=== PATIENT | female | born 1965 | race Caucasian/White ===

== ENCOUNTER → 2020-03-06 10:40 | Outpatient (BNVA) | payer OTHER, SELFPAY | PROVIDERS: Family Provider Obstetrics & Gynecology; Visit Provider Nurse Practitioner Family | DX: K21.00 Gastro-esophageal reflux disease with esophagitis, without bleeding (principal); R10.13 Epigastric pain; R11.2 Nausea with vomiting, unspecified | CPT/HCPCS: 80053; 85025 ==

== ENCOUNTER 2020-03-21 08:14 | Outpatient (CLI) | payer OTHER, SELFPAY ==
--- NOTE | 2020-03-21 08:45 | US_ITS ---
WS: [id number] RIGHT UPPER QUADRANT ULTRASOUND HISTORY: R10.13 - Epigastric pain COMPARISON: None available. Liver: 17.1 cm in length. Liver is slightly enlarged. No bile duct dilatation. Lobulated cyst in the central liver with thin septation measures 1.8 x 2.2 x 2.5 cm. Gallbladder: Normally distended gallbladder with cholelithiasis. Numerous stones are present within t he gallbladder. No wall thickening. CBD: 0.4 cm Pancreas: Normal head and body. Tail is obscured by bowel gas. Right kidney: 8.6 cm in length. Normal size and echogenicity. No hydronephrosis or mass. Aorta and IVC: Unremarkable abdominal aorta and IVC. No ascites. US/US gall bladder [id number] IMPRESSION: 1. Cold sinuses without acute cholecystitis. 2. Lobulated slightly septated cyst in the central liver measuring 1.8 x 2.2 x 2.5 cm. Recommend follow-up ultrasound in 3-4 months as this is not a simple c yst.
== END 2020-03-21 08:15 | disposition home or self-care (01) ==
LOC: US 08:15
PROVIDERS: PCP Nurse Practitioner; Visit Provider Nurse Practitioner Family
DX: R10.13 Epigastric pain (principal); K76.89 Other specified diseases of liver
CPT/HCPCS: 76705

== ENCOUNTER 2020-04-13 09:00 | Outpatient (CLI) | payer OTHER, SELFPAY ==
[2020-04-13] MEDS: iohexol 300 mg/mL 50 mL Btl PO (09:19)
[2020-04-13] MEDS: iohexol 300 mg/mL 100 mL Btl IV (10:19)
--- NOTE | 2020-04-13 10:30 | CT_ITS ---
WS: [id number] CT ABDOMEN WITH CONTRAST HISTORY: R10.13 - Epigastric pain Contiguous single phase 5 mm axial imaging performed to the abdomen. Oral contrast has been provided. Coronal and sagittal reformats are submitted. All CT scans at [facility] use at least on e of these dose optimization techniques: automated exposure control; mA and/or kV adjustment per basil ent size (includes targeted exams where dose is matched to clinical indication); or iterative reconst ruction. CONTRAST: Omnipaque 300; 95 mL IV. DLP: 725.18 mGycm COMPARISON: Gallbladder ultrasound 03/21/2020. Lower thorax: Unremarkable. Liver: Lobulated cystic mass in the LEFT lobe measures 2.1 x 1.6 cm. Recently described on ultrasound . No solid mass. Gallbladder: Normal. Pancreas: Normal. Spleen: Normal. Adrenals: Normal. Right kidney: Normal. Left kidney: 4 mm hypoechoic nodule in the central posterior kidney is probably a cyst but really too small to characterize. Aorta: No aneurysm. Moderate atherosclerosis aorta. There are heavy calcified plaques in the proximal iliac arteries bilaterally. GI tract: Normal. No adenopathy or free fluid. Abdominal wall: No hernia. Visualized osseous structures: Unremarkable. CT/CT abdomen w con* [id number] IMPRESSION: 1. Lobulated cystic mass LEFT lobe of the liver measures 2.1 x 1.6 cm. Recentl y described by ultrasound. 2. Negative gallbladder. 3. Small hiatal hernia. 4. Atherosclerosis aorta with heavy calcified plaque extending into the common iliac arteries.
== END 2020-04-13 09:01 | disposition home or self-care (01) ==
LOC: RADWPI 09:03
PROVIDERS: PCP Nurse Practitioner; Visit Provider Nurse Practitioner Family
DX: R10.13 Epigastric pain (principal); R16.0 Hepatomegaly, not elsewhere classified; K44.9 Diaphragmatic hernia without obstruction or gangrene; I70.0 Atherosclerosis of aorta
CPT/HCPCS: 74160; Q9967

== ENCOUNTER → 2020-11-01 10:31 | Outpatient (BNVA) | payer OTHER, SELFPAY | PROVIDERS: PCP Nurse Practitioner; Visit Provider Nurse Practitioner | DX: J45.909 Unspecified asthma, uncomplicated (principal); Z20.822 Contact with and (suspected) exposure to COVID-19 | CPT/HCPCS: 87635 ==

== ENCOUNTER 2020-11-05 13:25 | Outpatient (CLI) | payer OTHER, SELFPAY ==
[2020-11-05 13:38] VITALS: BP 134/79; PULSE 93; RESP 16; TEMP 36.9; O2SAT 97
[2020-11-05 14:45] VITALS: BP 112/74; PULSE 90; RESP 16; TEMP 37.1; O2SAT 90
--- NOTE | 2020-11-15 14:40 | DCPLANNER ---
instructional design manager had message that patient received the monoclonal antibody infusion. instructional design manager called patient to check on patient after she received the infusion. Patient stated that before the infusion she lost her sense of smell, she did not have a fever, and she did not have a cough. Patient stated that after the infusion she is feeling better now, she is getting a little bit of her smell back. Patient stated that she did followup with her primary care physician and that she did need to have oxygen after the infusion.
== END 2020-11-05 13:26 | disposition home or self-care (01) ==
PROVIDERS: PCP Nurse Practitioner; Visit Provider Nurse Practitioner Family
DX: U07.1 COVID-19 (principal)
CPT/HCPCS: 96365

== ENCOUNTER → 2021-01-09 09:42 | Outpatient (BNVA) | payer OTHER, SELFPAY | PROVIDERS: PCP Nurse Practitioner; Visit Provider Nurse Practitioner | DX: M20.002 Unspecified deformity of left finger(s) (principal) | CPT/HCPCS: 73130 ==

== ENCOUNTER → 2022-03-06 10:53 | Outpatient (BNVA) | payer OTHER, SELFPAY | PROVIDERS: PCP Nurse Practitioner; Visit Provider Nurse Practitioner | DX: J45.909 Unspecified asthma, uncomplicated (principal); J30.89 Other allergic rhinitis; Z13.6 Encounter for screening for cardiovascular disorders | CPT/HCPCS: 80053; 80061; 85025 ==

== ENCOUNTER → 2022-08-26 09:15 | Outpatient (BNVA) | payer OTHER, SELFPAY | PROVIDERS: PCP Nurse Practitioner; Visit Provider Nurse Practitioner | DX: E78.2 Mixed hyperlipidemia (principal); J45.909 Unspecified asthma, uncomplicated; F17.210 Nicotine dependence, cigarettes, uncomplicated | CPT/HCPCS: 80053; 80061 ==

== ENCOUNTER → 2023-03-03 09:24 | Outpatient (BNVA) | payer OTHER, SELFPAY | PROVIDERS: PCP Nurse Practitioner; Visit Provider Nurse Practitioner | DX: J45.909 Unspecified asthma, uncomplicated (principal); J30.89 Other allergic rhinitis; E78.2 Mixed hyperlipidemia | CPT/HCPCS: 80053; 80061 ==

== ENCOUNTER 2023-04-07 11:39 | Outpatient (CLI) | payer OTHER, SELFPAY ==
--- NOTE | 2023-04-07 12:00 | MM_ITS ---
WS: [id number] BILATERAL 3D TOMOSYNTHESIS DIGITAL SCREENING MAMMOGRAPHY WITH CAD CLINICAL INFORMATION: Z12.39 - Encounter for other screening for malignant neop... HISTORY: Screening mammogram. No current complaints. COMPARISON: New baseline TECHNIQUE: Bilateral CC and MLO views. FINDINGS: The breasts are composed of heterogeneous fibroglandular density tissue, which can limit the detectio n of small underlying mass lesions. No suspicious mass, asymmetry, calcifications, or architectural d istortion. No evidence of malignancy. A few tiny incidental punctate calcifications. IMPRESSION: MM/[place] [id number] BI-RADS: 2-Benign FOLLOW UP: 1 Year Follow-up Recommend return to annual screening mammography.
== END 2023-04-07 11:40 | disposition home or self-care (01) ==
LOC: MOBLMAM 11:42
PROVIDERS: PCP Nurse Practitioner; Visit Provider Nurse Practitioner
DX: Z12.31 Encounter for screening mammogram for malignant neoplasm of breast (principal)
CPT/HCPCS: 77063; 77067

== ENCOUNTER 2023-05-04 07:47 | Outpatient (CLI) | payer OTHER, SELFPAY ==
--- NOTE | 2023-05-04 08:00 | CT_ITS ---
WS: [id number] LDCT LUNG CANCER SCREENING HISTORY: F17.210 - Nicotine dependence, cigarettes, uncomplicated TECHNIQUE: Axial imaging performed from the apices to 1 cm below the costophrenic angles. Coronal and sagittal reformats are submitted with axial MIP series. All CT scans at [facility] use at least one of these dose optimization techniques: automated exposure control; mA and/or kV adjustment per patient size (includes targeted exams where dose is matched to clinical indication); or iterativ e reconstruction. DLP: 77.70 mGy.cm DIvol: Mean CTDIvol: 1.60 (mGy) COMPARISON: None available. Diagnostic quality: Satisfactory Lungs: Moderate pulmonary hyperexpansion and centrilobular emphysema. Focal area of distortion and sp iculation centered in the RIGHT upper lobe measures 6 mm. This is an irregular nodule with spiculatio n. There is an additional 6 mm irregular nodule in the RIGHT upper lobe towards the minor fissure. Ad ditional areas of scar scarring and fibrosis in the upper lung field. There are numerous bilateral sc attered granulomata. Heart: Normal size heart with no pericardial effusion.. Other findings: Mild atherosclerosis aorta. Normal size pulmonary artery. No lymph nodes are identifi ed. Small hiatal hernia. Low-attenuation mass LEFT lobe of the liver is lobulated measuring 2.1 x 2.9 cm. This mass was described on 04/13/2020 with slight increase in size. Few colonic diverticula are n oted in the upper abdomen. Increase in thoracic kyphosis. IMPRESSION: CT/CT lung screening [id number] LUNG-RADS: 3-Probably Benign FOLLOW UP: 3 Month LDCT OTHER FINDINGS (S MODIFIER): None.
== END 2023-05-04 07:48 | disposition home or self-care (01) ==
LOC: RAD 07:47
PROVIDERS: PCP Nurse Practitioner; Visit Provider Nurse Practitioner
DX: Z12.2 Encounter for screening for malignant neoplasm of respiratory organs (principal); F17.210 Nicotine dependence, cigarettes, uncomplicated; R91.8 Other nonspecific abnormal finding of lung field; J43.2 Centrilobular emphysema
CPT/HCPCS: 71271

== ENCOUNTER → 2023-09-07 11:42 | Outpatient (BNVA) | payer OTHER, SELFPAY | PROVIDERS: PCP Nurse Practitioner; Visit Provider Nurse Practitioner | DX: J30.89 Other allergic rhinitis (principal); J45.909 Unspecified asthma, uncomplicated; E78.2 Mixed hyperlipidemia; R91.1 Solitary pulmonary nodule | CPT/HCPCS: 80053; 80061 ==

== ENCOUNTER 2023-09-23 13:48 | Outpatient (CLI) | payer OTHER, SELFPAY ==
--- NOTE | 2023-09-23 14:30 | CTR_ITS ---
PROCEDURE INFORMATION: Exam: CT Chest Without Contrast; Diagnostic Exam date and time: 09/23/2023 2:18 PM Age: 58 years old Clinical indication: Abnormal findings; Abnormal radiologic exam of lung or chest; Additional info: R91.1 - solitary pulmonary nodule, lungs: Moderate pulmonary hyperexpansion and centrilobular TECHNIQUE: Imaging protocol: Diagnostic computed tomography of the chest without contrast. Radiation optimization: All CT scans at this facility use at least one of these dose optimization techniques: automated exposure control; mA and/or kV adjustment per patient size (includes targeted exams where dose is matched to clinical indication); or iterative reconstruction. COMPARISON: CT lung screening [id number] 05/04/2023 8:09 AM RADIATION DOSE METRICS: Total DLP (mGy-cm): 445 FINDINGS: Lungs: Unchanged bilateral bullous emphysema with hyperexpansion of the lungs. Two noncalcified spiculated nodules previously described as being 6 mm are unchanged. Multiple calcified granulomas in both lungs are again noted. Stable areas of pulmonary scarring. Otherwise, unremarkable. Pleural spaces: Unremarkable. No pneumothorax. No pleural effusion. Heart: Unremarkable. No cardiomegaly. No pericardial effusion. Coronary arteries: Unchanged moderate amount of coronary artery calcification. Lymph nodes: Unremarkable. No enlarged lymph nodes. Vasculature: Unchanged aortic and systemic arterial calcification. Otherwise, grossly unremarkable noncontrast vasculature. Liver: Unchanged lobulated low-density lesion in the liver. Otherwise, unremarkable visualized liver. Bones/joints: Unchanged very mild scoliosis. Slightly increased mild thoracic kyphosis. Unchanged mild and moderate multilevel spondylosis. Otherwise, unremarkable. Soft tissues: Otherwise, unremarkable visualized body wall. Otherwise, unremarkable soft tissues. CT/CT chest [facility] [id number] IMPRESSION: 1. Two spiculated noncalcified nodules in the right upper lobe are unchanged. For patients at low risk (minimal or absent history of smoking and of other known risk factors), recommend CT Chest at 3-6 months, then consider CT Chest at 18-24 months. For patients at high risk (history of smoking or of other known risk factors), recommend CT Chest at 3-6 months, then CT Chest at 18-24 months. (Reference: Jean Pierre). 2. Additional details as above. COMMENTS: The presence of pulmonary emphysema on CT is an independent risk factor for lung cancer. In the absence of a history or active diagnosis of lung cancer, it is recommended that this patient with emphysema be evaluated for enrollment in a low dose CT lung cancer screening program. REFERENCES: Jean Pierre Cortes, et al. Guidelines for Management of Incidental Pulmonary Nodules Detected on CT Images: From the Fleischner Society 2017. Radiology. 2017;284(1):228-243.
== END 2023-09-23 13:49 | disposition home or self-care (01) ==
LOC: RAD 13:50
PROVIDERS: PCP Nurse Practitioner; Visit Provider Nurse Practitioner
DX: R91.8 Other nonspecific abnormal finding of lung field (principal); J43.9 Emphysema, unspecified; I25.84 Coronary atherosclerosis due to calcified coronary lesion; I70.0 Atherosclerosis of aorta; K76.89 Other specified diseases of liver
CPT/HCPCS: 71250

== ENCOUNTER → 2024-02-23 09:06 | Outpatient (BNVA) | payer OTHER, SELFPAY | PROVIDERS: PCP Nurse Practitioner; Visit Provider Nurse Practitioner | DX: E78.2 Mixed hyperlipidemia (principal) | CPT/HCPCS: 80053; 80061; 84443 ==

== ENCOUNTER → 2024-02-24 | Outpatient (BNVA) | payer OTHER, SELFPAY | PROVIDERS: PCP Nurse Practitioner; Visit Provider Nurse Practitioner | DX: E03.9 Hypothyroidism, unspecified (principal); R79.89 Other specified abnormal findings of blood chemistry | CPT/HCPCS: 84439; 84481 ==

== ENCOUNTER 2024-03-15 10:32 | Outpatient (CLI) | payer OTHER, SELFPAY ==
--- NOTE | 2024-03-15 11:45 | USR_ITS ---
PROCEDURE INFORMATION: Exam: US Soft Tissue Head and Neck, TI-RADS Exam date and time: 03/15/2024 10:38 AM Age: 58 years old Clinical indication: Condition or disease; Thyroid disorder; Goiter, non-toxic; Type not specified; Additional info: E04.9 - nontoxic goiter, unspecified TECHNIQUE: Imaging protocol: Real-time ultrasound scan of the neck with image documentation. Exam focused on the thyroid. COMPARISON: CT chest wo con [id number] 09/23/2023 2:18 PM FINDINGS: Right thyroid lobe: Multiple nodules noted, the largest as described below. Diffusely heterogeneous right thyroid lobe with increased vascularity. Left thyroid lobe: Multiple nodules noted, the largest as described below. Diffusely heterogeneous left thyroid lobe with increased vascularity. Isthmus: Not thickened. Thyroid nodule 1 Size: 2.8 cm Thyroid nodule 1 Location: Lower right thyroid lobe Thyroid nodule 1 Composition: Solid Thyroid nodule 1 Echogenicity: Isoechoic Thyroid nodule 1 Shape: Wider than taller Thyroid nodule 1 Margins: Ill-defined Thyroid nodule 1 Echogenic foci: No Thyroid nodule 1 Points: 3 Thyroid nodule 2 Size: 1.4 cm Thyroid nodule 2 Location: Inferior right thyroid lobe Thyroid nodule 2 Composition: Solid Thyroid nodule 2 Echogenicity: Isoechoic Thyroid nodule 2 Shape: Wider than taller Thyroid nodule 2 Margins: Smooth Thyroid nodule 2 Echogenic foci: No Thyroid nodule 2 Points: 3 Thyroid nodule 3 Size: 0.9 cm Thyroid nodule 3 Location: Superomedial left thyroid lobe Thyroid nodule 3 Composition: Solid Thyroid nodule 3 Echogenicity: Isoechoic Thyroid nodule 3 Shape: Wider than taller Thyroid nodule 3 Margins: Ill-defined Thyroid nodule 3 Echogenic foci: No Thyroid nodule 3 Points: 3 Lymph nodes: No enlarged nodes. US/US thyroid [id number] IMPRESSION: 1. Diffusely heterogeneous thyroid gland with increased vascularity, consistent with thyroiditis. 2. Lower right thyroid lobe nodule measuring 2.8 cm, with TI-RADS 3 imaging characteristics, for which FNA is recommended. 3. Inferior right thyroid lobe nodule measuring 1.4 cm, with TI-RADS 3 imaging characteristics. No FNA or follow-up recommended. 4. Superomedial left thyroid lobe nodule measuring 0.9 cm, with TI-RADS 3 imaging characteristics. No FNA or follow-up recommended.
== END 2024-03-15 10:33 | disposition home or self-care (01) ==
LOC: RAD 10:32
PROVIDERS: PCP Nurse Practitioner; Visit Provider Nurse Practitioner
DX: E04.2 Nontoxic multinodular goiter (principal)
CPT/HCPCS: 76536

== ENCOUNTER → 2024-05-31 07:42 | Outpatient (BNVA) | payer OTHER, SELFPAY | PROVIDERS: PCP Nurse Practitioner; Visit Provider Nurse Practitioner | DX: E03.8 Other specified hypothyroidism (principal) | CPT/HCPCS: 84443 ==

== ENCOUNTER 2024-07-06 13:23 | Outpatient (CLI) | payer OTHER, SELFPAY ==
--- NOTE | 2024-07-06 14:45 | US_ITS ---
WS: [id number] ULTRASOUND-GUIDED RIGHT THYROID NODULE FNA HISTORY: Biopsy recommended of the large nodule lower pole RIGHT thyroid. Procedure, risks, and complications were explained to the patient. Consent has been obtained. Comparison: 03/15/2024 reviewed. The skin is cleansed with ChloraPrep and anesthetized with 1% buffered lidocaine. FNA performed with 25 gauge needles. cardiac cath lab technologist is present to fix slides. US/US biopsy/FNA thyroid [id number] IMPRESSION: Uncomplicated FNA of a RIGHT thyroid nodule. Biopsies performed of the nodule i n the RIGHT lower thyroid. Final pathology results pending.
== END 2024-07-06 13:24 | disposition home or self-care (01) ==
PROVIDERS: PCP Nurse Practitioner; Visit Provider Nurse Practitioner
DX: R91.1 Solitary pulmonary nodule (principal)
CPT/HCPCS: 10005; 88173

== ENCOUNTER → 2024-08-29 08:58 | Outpatient (BNVA) | payer OTHER, SELFPAY | PROVIDERS: PCP Nurse Practitioner; Visit Provider Nurse Practitioner | DX: E78.2 Mixed hyperlipidemia (principal); E03.8 Other specified hypothyroidism | CPT/HCPCS: 80053; 80061; 84439; 84443 ==

== ENCOUNTER → 2024-11-21 10:42 | Outpatient (BNVA) | payer OTHER, SELFPAY | PROVIDERS: PCP Nurse Practitioner; Visit Provider Nurse Practitioner | DX: E03.8 Other specified hypothyroidism (principal) | CPT/HCPCS: 84439; 84443; 84481 ==

== ENCOUNTER → 2025-02-20 09:41 | Outpatient (BNVA) | payer OTHER, SELFPAY | PROVIDERS: PCP Nurse Practitioner; Visit Provider Nurse Practitioner | DX: E03.8 Other specified hypothyroidism (principal); E78.2 Mixed hyperlipidemia | CPT/HCPCS: 80053; 80061; 84443 ==